=== PATIENT | female | born 1995 | race Caucasian/White ===

== ENCOUNTER → 2017-08-22 | Outpatient (CLI) | payer SELFPAY ==
--- NOTE | 2017-08-22 15:14 | RADIOLOGY REPORT (SQ) ---
EXAM DESCRIPTION: U/S OB 14+ TRNABD 1GES W/O DOP COMPLETED DATE/TIME: 08/22/2017 2:53 pm REASON FOR STUDY: Z34.02 ENCNTR FOR SUPRVSN OF NORMAL FIRST PREG, SECOND TRIMESTER Z34.02 ENCNTR FO R SUPRVSN OF NORMAL FIRST PREG, SECOND TRIME COMPARISON: None. TECHNIQUE: Static and Dynamic grayscale imaging performed of gravid uterus using transabdominal appr oac. Additional selected color Doppler and spectral images recorded. All stored on PACS. LIMITATIONS: None. FINDINGS: EGA: 23 weeks 1 day by ultrasound measurements JANET: 12/18/2017 EFW: 576 grams PERCENTILE: 43rd percentile UNIQUE: Adequate PLACENTA: Posterior GRADE: I PRESENTATION: Transverse ANATOMY: HEART RATE: 152 beats per minute. FOUR CHAMBER HEART: Visualized. THREE VESSEL CORD: Yes. CORD INSERTION: Visualized. KIDNEYS AND BLADDER: Visualized. Appear normal. STOMACH: Visualized. Appears normal. SPINE: Normal as visualized. BRAIN AND LATERAL VENTRICLES: Visualized. Appear normal. OTHER: No other significant finding. MATERNAL ADNEXA: Maternal ovaries not visualized. CERVICAL LENGTH: 4 cm Closed. OTHER: No other significant finding. IMPRESSION: LIVING INTRAUTERINE . ESTIMATED GESTATIONAL AGE 23 weeks 1 day NO VISUALIZED ANOMALIES. Trimester of : Second trimester - 13 weeks 1 day to 27 weeks 6 days. TECHNICAL DOCUMENTATION: JOB ID: [id number] [employer]- All Rights Reserved Reading location - IP/workstation name: [email or web address]
== END ==
LOC: RAD 13:50
PROVIDERS: ATTEND Nurse Practitioner Women's Health
DX: Z34.02 Encounter for supervision of normal first pregnancy, second trimester (principal)
CPT/HCPCS: 76805

== ENCOUNTER 2017-12-26 06:08 | Inpatient (IN) | payer MEDICAID ==
[2017-12-26] MEDS ORDERED: OXYTOCIN/NORMAL SALINE 20 UNIT/1,000 ML RTUINJ IV PRN ×2 (06:18→20:39)
[2017-12-26] MEDS ORDERED: RINGERS SOLUTION,LACTATED 300 ML IV ONE (06:35)
[2017-12-26 07:15] LABS: APPEARANCE,URINE SLIGHTLY-CLOUDY; BILIRUBIN,URINE NEGATIVE (NEGATIVE); COLOR,URINE YELLOW; GLUCOSE, URINE NEGATIVE (NEGATIVE); KETONES,URINE NEGATIVE (NEGATIVE); LEUKOCYTE ESTERASE,URINE SMALL (NEGATIVE); NITRITE,URINE NEGATIVE (NEGATIVE); PROTEIN,URINE NEGATIVE (NEGATIVE); URINE SPECIFIC GRAVITY 1.018; UROBILINOGEN,URINE NEGATIVE mg/dL (<2.0)
[2017-12-26 07:22] LABS: HEMATOCRIT 35.7 % (36.0-47.0); HEMOGLOBIN 12.1 g/dL (12.0-15.5); MEAN CORPUSCULAR HEMOGLOBIN 29.6 pg (27.0-33.4); MEAN CORPUSCULAR HGB CONC 33.9 g/dL (32.0-36.0); MEAN CORPUSCULAR VOLUME 87 fl (80-97); PLATELET COUNT 216 10^3/uL (150-450); RED BLOOD COUNT 4.08 10^6/uL (3.72-5.28); WHITE BLOOD COUNT 12.4 10^3/uL (4.0-10.5)
[2017-12-26 07:31] LABS: URINE AMPHETAMINES SCREEN NEGATIVE; URINE BARBITURATES SCREEN NEGATIVE; URINE BENZODIAZEPINES SCREEN NEGATIVE; URINE COCAINE SCREEN NEGATIVE; URINE MARIJUANA (THC) SCREEN NEGATIVE; URINE METHADONE SCREEN NEGATIVE; URINE PHENCYCLIDINE SCREEN NEGATIVE
[2017-12-26 07:49] LABS: ABSOLUTE LYMPHOCYTES# (MANUAL) 1.5 10^3/uL (0.5-4.7); ABSOLUTE MONOCYTES # (MANUAL) 0.6 10^3/uL (0.1-1.4); ABSOLUTE NEUTROPHILS# (MANUAL) 10.2 10^3/uL (1.7-8.2); BASOPHILS % (MANUAL) 0 % (0-2); EOSINOPHILS % (MANUAL) 1 % (0-6); LYMPHOCYTES % (MANUAL) 12 % (13-45); MONOCYTES % (MANUAL) 5 % (3-13); POLYCHROMASIA SLIGHT; SEGMENTED NEUTROPHILS % (MAN) 82 % (42-78); TOTAL CELLS COUNTED 100
[2017-12-26 07:50] LABS: PLATELET COMMENT ADEQUATE
[2017-12-26] MEDS ORDERED: LIDOCAINE 1% INJ-PF (10 MG/ML) 30 ML SDV ONE (08:18)
[2017-12-26] MEDS ORDERED: MISOPROSTOL 0.2 MG TABLET ONE (08:18)
[2017-12-26] MEDS ORDERED: OXYTOCIN/NORMAL SALINE 20 UNIT/1,000 ML RTUINJ ONE (08:18)
--- NOTE | 2017-12-26 12:06 | L&D Progress Notes ---
PROGRESS NOTES Datetime Report Generated by CPN: 12/26/2017 12:06 PROGRESS NOTE Impression: Reassuring Heart Rate Impression Other: IUP @ 41w IOL-stable Procedures: Artificial ROM; Sterile Vag Exam Plan: Continue Present Management Informed Consent Obtained: Induction of Labor; Risks, Benefits and Alternatives Discussed Vital Signs : Reviewed; Within Normal Limits Comment: S: reports cramping has finally started with contractions for the last 20min O:VSS, cat I tracing, cervix stated, pit @ 14mu/min A: IUP @ 41w post term IOL-progressing, AROM clear fluid P: continue IOL with pitocin, epidural prn VAGINAL EXAM Dilatation: 3 Effacement: 80 Station: -1 Contractions: 1.52.5 MEMBRANES Membranes: Ruptured Amniotic Fluid Color: Clear FETUS A Monitoring: External US Accelerations: 15X15 Decelerations: None FHR Category: Category I SIGNATURE SIGNATURE: [id number] SIGNATURE: [id number] Assignment: Caro Garcia MD Signature: with User ID: Jason : with User ID: Jason
[2017-12-26] MEDS ORDERED: FENTANYL CITRATE INJ/PF 100 MCG/2 ML AMPUL ONE (13:40)
[2017-12-26] MEDS ORDERED: PHENYLEPHRINE HCL INJ/PF 10 MG/1 ML SDV ONE (13:40)
[2017-12-26] MEDS ORDERED: EPHEDRINE SULFATE INJ 50 MG/1 ML AMPULE ONE (13:41)
[2017-12-26] MEDS ORDERED: BUPIVACAINE HCL 0.5 % INJ/PF 30 ML SDV ONE (13:41)
[2017-12-26] MEDS ORDERED: FENTANYL/BUPIVACAINE/NS/PF 300 MCG/150 ML RTUINJ EPI ONE (13:42)
[2017-12-26] MEDS: RINGERS SOLUTION,LACTATED 1,000 ML IV PRN ×2 (13:51→14:41)
--- NOTE | 2017-12-26 16:49 | L&D Progress Notes ---
PROGRESS NOTES Datetime Report Generated by CPN: 12/26/2017 16:49 PROGRESS NOTE Impression Other: IOL @ 41w-stable Procedures: Sterile Vag Exam Plan: Continue Present Management Informed Consent Obtained: Induction of Labor; Risks, Benefits and Alternatives Discussed Vital Signs : Reviewed; Within Normal Limits Comment: S: pt. with some perineal pressure,complete relief of pain with epidural placement, no concerns at this time O:vss, pit @ 14mu/min, cervix as stated A: IUP @ 41w-stable, progressing well P: continue IOL, reasess as clinically indicated VAGINAL EXAM Dilatation: 6 Effacement: 100 Station: -1 Contractions: 1.5-3 FETUS A Monitoring: External US Accelerations: 15X15 Decelerations: Early FHR Category: Category I FETUS C SIGNATURE: [id number] Assignment: Caro Garcia MD Signature: with User ID: Jason : with User ID: Jason
[2017-12-26] MEDS ORDERED: AMPICILLIN SOD/SULBACTAM 3 GM VIAL ONE (20:37)
[2017-12-26] MEDS ORDERED: ACETAMINOPHEN 325 MG TABLET ONE (20:37)
[2017-12-26] MEDS ORDERED: ZOLPIDEM TARTRATE 5 MG TABLET PO PRN (20:39)
[2017-12-26] MEDS ORDERED: NA PHOS,M-B/NA PHOS,DI-BA (ADULT) 133 ML ENEMA PR PRN (20:39)
[2017-12-26] MEDS ORDERED: DIPHENHYDRAMINE HCL 25 MG CAPSULE PO PRN (20:39)
[2017-12-26] MEDS ORDERED: MEASLES,MUMPS&RUBELLA VACC/PF 0.5 ML VIAL SUBCUT PRN (20:39)
[2017-12-26] MEDS ORDERED: GLYCERIN/WITCH HAZEL LEAF 1 EACH MED..PAD TP PRN (20:39)
[2017-12-26] MEDS ORDERED: PROMETHAZINE HCL 25 MG TABLET PO PRN (20:39)
[2017-12-26] MEDS ORDERED: ACETAMINOPHEN WITH CODEINE #3 TABLET PO PRN ×2 (20:39)
[2017-12-26] MEDS ORDERED: MAGNESIUM HYDROXIDE SUSP 30 ML UDCUP PO PRN (20:39)
[2017-12-26] MEDS ORDERED: BENZOCAINE/MENTHOL AEROSOL SPRAY 56 ML TOP PRN (20:39)
[2017-12-26] MEDS ORDERED: PROMETHAZINE HCL 25 MG SUPP.RECT PR PRN (20:39)
[2017-12-26] MEDS ORDERED: DIBUCAINE 1% OINTMENT 28 GM TP PRN (20:39)
[2017-12-26] MEDS ORDERED: PROMETHAZINE HCL INJ 25 MG/1 ML VIAL IV PRN (20:39)
[2017-12-26] MEDS ORDERED: DIPH/PERTUSS(ACELL)/TETANUS VAC/PF 0.5 ML SYR (>=10YO) IM PRN (20:39)
[2017-12-26] MEDS ORDERED: PSEUDOEPHEDRINE HCL 30 MG TABLET PO PRN (20:39)
[2017-12-26] MEDS ORDERED: ACETAMINOPHEN 650 MG SUPP.RECT PR PRN (20:39)
[2017-12-26] MEDS ORDERED: AMPICILLIN SOD/SULBACTAM 3 GM VIAL IV SCH (20:45)
[2017-12-26] MEDS ORDERED: AMPICILLIN SODIUM/SULBACTAM NA 3 GM in NORMAL SALINE 100 ML IV SCH (22:00)
--- NOTE | 2017-12-26 22:08 | Delivery Summary ---
Del Sum A-C Datetime Report Generated by CPN: 12/26/2017 22:08 DELIVERY PERSONNEL DELIVERY PERSONNEL: [id number] Delivery Doctor:: Caro Garcia MD Labor and Delivery Nurse:: Arti Pace RNroof bolter helper Nurse:: Cr Painter RN Bulk Delivery Driver/HORTICULTURE TEACHER: Abdiel Ertel, HORTICULTURE TEACHER MATERNAL INFORMATION Delivery Anesthesia: Epidural Medications After Delivery: Pitocin Drip 20 Units/1000ml NSS Estimated Blood Loss (ml): 200 Maternal Complications: None LABOR SUMMARY EDC: 12/19/2017 00:00 No. Babies in Womb: 1 Attempted: No Labor Anesthesia: Epidural LABOR INFORMATION Reason for Induction: Post Dates Onset of Labor: 12/26/2017 11:58 Complete Dilatation: 12/26/2017 19:23 Oxytocin: Induction Group B Beta Strep: Negative Antibiotics # of Doses: 0 Antibiotics Time of Last Dose: n/a Name of Antibiotic Given: n/a Steroids Given: None Reason Steroids Not Administered: Not Applicable Other Reason Not Administered: n/a MEMBRANES Membranes Rupture Method: Artificial Rupture of Membranes: 12/26/2017 11:59 Length of Rupture (hr): 8.42 Amniotic Fluid Color: Clear Amniotic Fluid Amount: Moderate Amniotic Fluid Odor: Normal STAGES OF LABOR Stage 1 hr: 7 Stage 1 min: 25 Stage 2 hr: 1 Stage 2 min: 1 Stage 3 hr: 0 Stage 3 min: 4 Total Time in Labor hr: 8 Total Time in Labor min: 30 VAGINAL DELIVERY Episiotomy: None Laceration #1: None Laceration Extension #1: N/A Laceration Repair: Not Applicable Sponge Count Correct: N/A Sharps Count Correct: N/A CSECTION DELIVERY Primary Indication: N/A Secondary Indication: N/A CSection Incidence: N/A Labor: N/A Elective: N/A CSection Incision: N/A BABY A INFORMATION Infant Delivery Date/Time: 12/26/2017 20:24 Method of Delivery: Vaginal Born in Route : No : N/A Forceps: N/A Vacuum Extraction: N/A Shoulder Dystocia : No PRESENTATION/POSITION BABY A Presentation: Cephalic Cephalic Presentation: Vertex Vertex Position: Left Occipital Anterior Breech Presentation: N/A PLACENTA INFORMATION BABY A Placenta Delivery Time : 12/26/2017 20:28 Placenta Method of Delivery: Spontaneous Placenta Status: Delivered SCORES BABY A Heart Rate 1 min: >100 bpm Resp Effort 1 min: Good Cry Reflex Irritability 1 min: Cough or Sneeze or Pulls Away Muscle Tone 1 min: Active Motion Color 1 min: Blue/Pale Resuscitation Effort 1 min: Tactile Stimulation SCORE 1 MIN: 8 Heart Rate 5 min: >100 bpm Resp Effort 5 min: Good Cry Reflex Irritability 5 min: Cough or Sneeze or Pulls Away Muscle Tone 5 min: Active Motion Color 5 min: Body [place], Extremities Blue Resuscitation Effort 5 min: Tactile Stimulation SCORE 5 MIN: 9 INFANT INFORMATION BABY A Gestational Age at Delivery: 41.0 Gestational Status: Late Term- 41- 41.6 Weeks Infant Outcome : Liveborn Infant Condition : Stable Sex: Female IDENTIFICATION BABY A Infant Verification Date/Time: 12/26/2017 20:51 ID Band Number: [id number] Mother's Name Verified: Yes Infant RN Verifying : Marco Antonio Pace RN/ S. Ary RN WEIGHT/LENGTH BABY A Birthweight (gm): 3820 Infant Weight (lb): 8 Infant Weight (oz): 7 Length (in): 19.75 Length (cm): 50.17 CORD INFORMATION BABY A No. Cord Vessels: 3 Nuchal Cord : N/A Cord Blood Taken: Yes-For Eval (Mom's Blood Type - or O+) Infant Suction: Mouth; Nose ASSESSMENT BABY A Complications: None Physical Findings at Delivery: Within Normal Limits; Molding of the Head Infant Respirations: Appears Normal Skin to Skin: Yes Skin to Skin Time (min): 60 Visitor Use Assistant/ALS Called : No Infant Care By: Marco Antonio Pace RN Transferred To: Remains with Mother BABY B INFORMATION : N/A SIGNATURES Signature: with User ID: [email or web address]
[2017-12-26] MEDS: IBUPROFEN 800 MG TABLET PO SCH (23:26)
[2017-12-26] MEDS: FAMOTIDINE 20 MG TABLET PO SCH (23:26)
[2017-12-27] MEDS: IBUPROFEN 800 MG TABLET PO SCH ×3 (05:23→23:47)
[2017-12-27] MEDS: AMPICILLIN SODIUM/SULBACTAM NA 3 GM in NORMAL SALINE 100 ML IV SCH ×2 (05:25→14:50)
[2017-12-27 07:50] LABS: HEMATOCRIT 29.9 % (36.0-47.0); HEMOGLOBIN 10.3 g/dL (12.0-15.5); MEAN CORPUSCULAR HEMOGLOBIN 30.2 pg (27.0-33.4); MEAN CORPUSCULAR HGB CONC 34.3 g/dL (32.0-36.0); MEAN CORPUSCULAR VOLUME 88 fl (80-97); PLATELET COUNT 164 10^3/uL (150-450); RED CELL DISTRIBUTION WIDTH 13.9 % (11.5-14.0); WHITE BLOOD COUNT 14.1 10^3/uL (4.0-10.5)
--- NOTE | 2017-12-27 09:33 | PDOC PROGRESS REPORT ---
Subjective-OB Progress Note for:: 12/27/17 Subjective: Pt doing well, no concerns. She reports light bleeding, reg diet and voiding well. Bonding with baby. Physical Exam (OB) Vital Signs: Temp Pulse Resp BP Pulse Ox 97.9 F 92 20 122/72 98 12/27/17 03:52 12/27/17 03:52 12/27/17 03:52 12/27/17 03:52 12/27/17 03:52 Intake & Output 12/26/17 12/27/17 12/28/17 06:59 06:59 06:59 Intake Total 104 100 Balance 104 100 Weight 91.9 kg - Lochia Lochia Amount: Small 10-25 ml Lochia Color: Rubra/Red - Abdomen Description: Soft, Round Hernia Present: No Fundal Description: Firm, Midline Fundal Height: u/u - u/2 Objective-Diagnostic Laboratory: 12/27/17 07:11 12/27/17 07:11 WBC 14.1 H RBC 3.40 L Hgb 10.3 L Hct 29.9 L MCV 88 MCH 30.2 MCHC 34.3 RDW 13.9 Plt Count 164 Assessment and Plan(PN) - Assessment and Plan (1) Vaginal delivery Is this a current diagnosis for this admission?: Yes - Time Spent with Patient Time with patient: Less than 15 minutes Medications reviewed and adjusted accordingly: Yes - Disposition Anticipated Discharge: Home Within: within 24 hours
[2017-12-27] MEDS ORDERED: SENNOSIDES/DOCUSATE 8.6-50 MG 1 EACH TABLET PO SCH (10:00)
[2017-12-27] MEDS ORDERED: PRENATAL VITAMIN W DHA CAPSULE PO SCH (10:00)
[2017-12-27] MEDS: DOCUSATE SODIUM 100 MG CAPSULE PO SCH ×2 (11:01→18:02)
[2017-12-27] MEDS: FAMOTIDINE 20 MG TABLET PO SCH ×2 (11:01→23:49)
[2017-12-27] MEDS: FERROUS SULFATE 325 MG TABLET PO SCH ×2 (11:03→18:01)
[2017-12-28] MEDS: IBUPROFEN 800 MG TABLET PO SCH (06:01)
--- NOTE | 2017-12-28 09:29 | PDOC PROGRESS REPORT ---
Subjective-OB Progress Note for:: 12/28/17 Subjective: Ready for discharge. Physical Exam (OB) Vital Signs: Temp Pulse Resp BP Pulse Ox 98.4 F 84 18 130/83 H 99 12/27/17 20:23 12/27/17 20:23 12/27/17 20:23 12/27/17 20:23 12/27/17 20:23 Intake & Output 12/27/17 12/28/17 12/29/17 06:59 06:59 06:59 Intake Total 104 980 Balance 104 980 - PIH/Pre-Eclampsia Clonus: Negative Headache: Absent Epigastric Pain: No Visual Changes: No - Lochia Lochia Amount: Scant < 10 ml Lochia Color: Rubra/Red - Abdomen Description: Soft, Round Hernia Present: No Bowel Sounds: Normoactive Flatus Presence: Present Stool: No Fundal Description: Firm, Midline Fundal Height: u/u - u/2 Objective-Diagnostic Laboratory: 12/27/17 07:11 Assessment and Plan(PN) - Time Spent with Patient Medications reviewed and adjusted accordingly: Yes - Disposition Anticipated Discharge: Home
--- NOTE | 2017-12-28 09:33 | PDOC DISCHARGE SUMMARY ---
Final Diagnosis Discharge Date: 12/28/17 - Final Diagnosis (1) Insufficient antepartum care Is this a current diagnosis for this admission?: Yes (2) Is this a current diagnosis for this admission?: Yes (3) Vaginal delivery Is this a current diagnosis for this admission?: Yes Discharge Data - Discharge Medication Home Medications: 95/Iron Fum/Folic/Dha [ + Dha Combo Pack] 1 tab PO DAILY Ferrous Sulfate [Feosol 325 mg Tablet] 325 mg PO BID tablet 12/28/17 Gestational Age: 41 wks Reason(s) for Admission: Induction of Labor Procedures: Ultrasound Intrapartum Procedure(s): Spontaneous Vaginal Delivery - Data Baby 1 Female at 1 minute: 8 at 5 minutes: 9 Weight: 3.827 kg Home with Mother: Yes Complications: Yes - Diagnosis Test Laboratory: Temp Pulse Resp BP Pulse Ox 98.4 F 84 18 130/83 H 99 12/27/17 20:23 12/27/17 20:23 12/27/17 20:23 12/27/17 20:23 12/27/17 20:23 12/26/17 12/26/17 12/27/17 06:15 06:53 07:11 RBC 4.08 3.40 L Hgb 12.1 10.3 L Hct 35.7 L 29.9 L Urine Opiates Screen NEGATIVE - Discharge information/Instructions Discharge Activity: Activity As Tolerated, Balance Activity w/Rest, Pelvic Rest , Slowly Increase Activity, No tub bath Discharge Diet: Regular Disposition: HOME, SELF-CARE Follow up with: [facility] in: 4, Weeks
[2017-12-28 09:56] VITALS: BP 122/77
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
== END 2017-12-28 11:44 | disposition home or self-care (01) | DRG 775 ==
LOC: LR 06:08 → 2S 22:28
PROVIDERS: ADMIT Obstetrics & Gynecology; ATTEND Obstetrics & Gynecology
PROC: 10E0XZZ Delivery of Products of Conception, External Approach (ICD-10-PCS; principal; 2017-12-26)
DX: O48.0 Post-term pregnancy (principal); Z3A.41 41 weeks gestation of pregnancy; Z37.0 Single live birth
CPT/HCPCS: 36415; 80307; 81005; 85025; 85027; 86592; 86850; 86900; 86901; J0295; J2370; J2590; J3010; J3490